=== PATIENT | male | born 1955 | race African-American/Black ===

== ENCOUNTER 2017-05-02 07:11 | Emergency (ER) | payer OTHER ==
[2017-05-02 07:44] VITALS: TEMP 98.3; BMI 27.8
--- NOTE | 2017-05-02 08:43 | PDOC ---
History of Present Illness - General Chief Complaint: Pain Stated Complaint: RIGHT LEG NUMBNESS/PAIN Time Seen by Provider: 05/02/17 07:57 History Source: Patient Exam Limitations: No Limitations - History of Present Illness Initial Comments: 05/02/17 08:08 61-year-old male presents to the ED with complaints of intermittent right groin pain that radiates down to his right thigh intermittently associated with tingling without numbness. Patient states pain is worsened with ambulation or with certain positions with sitting. Patient denies lower extremity edema, previous injury to affected area, history of hernias. Fever, chills or weakness. Patient denies lower back pain, radiation of pain to his abdominal or inguinal area. Patient also denies any rash or skin discoloration. Timing/Duration: intermittent (x 4-5 days) Severity: mild Associated Symptoms: reports: denies symptoms Past History - Past Medical History Allergies/Adverse Reactions: Allergies Allergy/AdvReac Type Severity Reaction Status Date / Time No Known Allergies Allergy Verified 05/02/17 08:32 Home Medications: Ambulatory Orders NK [No Known Home Medication] 05/02/17 Other medical history: denies - Psycho/Social/Smoking Cessation Hx Anxiety: No Suicidal Ideation: No Smoking History: Former smoker Have you smoked in the past 12 months: No Information on smoking cessation initiated: No Hx Alcohol Use: No Drug/Substance Use Hx: No Substance Use Type: None Patient Lives Alone: No Lives with/in: spouse/SO Review of Systems - Review of Systems Able to Perform ROS?: Yes Constitutional: No: Symptoms Reported Musculoskeletal: Yes: Joint Pain (right groin/ hip), Muscle Pain. No: Joint Swelling, Muscle Weakness, Joint Stiffness Integumentary: No: Symptoms Reported Neurological: No: Symptoms reported Hematologic/Lymphatic: No: Symptoms Reported *Physical Exam - Vital Signs Last Vital Signs Temp Pulse Resp BP Pulse Ox 98.3 F 75 20 145/73 98 05/02/17 07:41 05/02/17 07:41 05/02/17 07:41 05/02/17 07:41 05/02/17 07:41 - Physical Exam General Appearance: Yes: Nourished, Appropriately Dressed. No: Apparent Distress Vascular Pulses: Dorsalis-Pedis (R): 2+ Gastrointestinal/Abdominal: positive: Soft. negative: Tenderness Male Genitalia: positive: normal genitalia. negative: inguinal hernia Musculoskeletal: negative: CVA Tenderness, Vertebral Tenderness Extremity: positive: Normal Capillary Refill, Normal Inspection, Normal Range of Motion. negative: Tender, Pedal Edema, Calf Tenderness (right straight leg / knee to chest.) Integumentary: positive: Normal Color, Warm, Moist Neurologic: positive: Motor Strength 5/5 ED Treatment Course - RADIOLOGY Radiology Studies Ordered: Category Date Time Status DUPLEX VASCUL US-1 LEG [US] Stat Ultrasound 05/02/17 07:59 Ordered Medical Decision Making - Medical Decision Making 05/02/17 08:02 Patient with intermittent right hip and right groin pain worsened with ambulation and certain positions. Patient denies any injury recently or previous injury to the affected area. Patient had no reproducible pain and had normal neuro findings of the extremity. 5 out of 5 muscle strength. Patient will be ordered for a duplex to rule out DVT. If negative will refer to PMD to consider further imaging such as an MRI if pain continues 05/02/17 10:06 Duplex negative for DVT. Patient will be given a dose of Toradol IM and discharged home to follow-up with his PCP for further management. *DC/Admit/Observation/Transfer Diagnosis at time of Disposition: Pain of right hip - Discharge Dispostion Disposition: HOME Condition at time of disposition: Good - Referrals Referrals: Josse Rivera MD [Primary Care Provider] - - Patient Instructions Printed Discharge Instructions: DI for Leg Pain Additional Instructions: May take Tylenol since Motrin did not alleviate discomfort. If the pain continues over the next 5 days to this severity it is today or worse , please follow-up with your PCP. Otherwise. Return to the ED if pain becomes severe.
[2017-05-02] MEDS ORDERED: KETOROLAC TROMETHAMINE 60 MG/2 ML VIAL IM ONE (10:06)
[2017-05-02] MEDS ORDERED: KETOROLAC TROMETHAMINE 60 MG/2 ML VIAL ONE (10:19)
[2017-05-02 10:36] VITALS: BP 130/70; PULSE 72
== END 2017-05-02 10:36 | disposition home or self-care (01) ==
LOC: JER 07:11
PROC: 3E0233Z Introduction of Anti-inflammatory into Muscle, Percutaneous Approach (ICD-10-PCS; principal; 2017-05-02)
DX: M25.551 Pain in right hip (principal); Z87.891 Personal history of nicotine dependence
CPT/HCPCS: 93971-TC; 99282-25

== ENCOUNTER 2017-05-11 11:42 | Emergency (ER) | payer OTHER ==
[2017-05-11 11:50] VITALS: BP 160/100; PULSE 75; TEMP 98.3; BMI 26.4
[2017-05-11] MEDS ORDERED: KETOROLAC TROMETHAMINE 60 MG/2 ML VIAL IM ONE (12:37)
[2017-05-11] MEDS ORDERED: KETOROLAC TROMETHAMINE 60 MG/2 ML VIAL ONE (12:40)
--- NOTE | 2017-05-11 12:44 | PDOC ---
History of Present Illness - General Chief Complaint: Pain Stated Complaint: PAIN Time Seen by Provider: 05/11/17 12:06 History Source: Patient Exam Limitations: No Limitations - History of Present Illness Initial Comments: 05/11/17 12:38 Patient is a 61-year-old male, denies any significant medical history, was seen in the emergency department on 05/02/2017 or right lateral leg pain radiating down leg. Ultrasound was performed negative for DVT. Patient was referred to neurology who started him on medication for restless leg. Patient reports that medication is not working and he is awaiting approval from the insurance company for an MRI and feels that it is taking too long. Patient states pain is reproducible worse with certain positions and sitting. Patient denies lower extremity edema, previous injury to affected area, history of hernias. Fever, chills or weakness. Patient denies lower back pain, radiation of pain to his abdominal or inguinal area. Patient also denies any rash or skin discoloration. Patient denies any numbness or tingling, no saddle anesthesia, no footdrop. Patient states that he is in the emergency department for pain control. Review of Systems GENERAL/CONSTITUTIONAL: No fever or chills. No weakness. No weight change. HEAD, EYES, EARS, NOSE AND THROAT: No change in vision. No ear pain or discharge. No sore throat. CARDIOVASCULAR: No chest pain or shortness of breath. RESPIRATORY: No cough, wheezing, or hemoptysis. GASTROINTESTINAL: No nausea, vomiting, diarrhea or constipation. No rectal bleeding. GENITOURINARY: No dysuria, frequency, or change in urination. MUSCULOSKELETAL: Right lateral hip pain radiating down right leg . No neck or back pain. SKIN: No rash or easy bruising. NEUROLOGIC: No headache, vertigo, loss of consciousness, or loss of sensation. Physical Exam: GENERAL: The patient is awake, alert, and fully oriented, in no acute distress. EYES: Pupils equal, round and reactive to light, extraocular movements intact, sclera anicteric, conjunctiva clear. ENT: Ears normal, nares patent, oropharynx clear without exudates. Moist mucous membranes. No uvula deviation NECK: Normal range of motion, supple without lymphadenopathy, JVD, or masses. LUNGS: Breath sounds equal, clear to auscultation bilaterally. No wheezes, and no crackles. HEART: Regular rate and rhythm, normal S1 and S2 without murmur, rub or gallop. ABDOMEN: Soft, nontender, normoactive bowel sounds. No guarding, no rebound. No masses. No bruising or abrasions RECTAL : Guaiac negative, normal rectal tone. MUSCULOSKELETAL: Normal range of motion, no edema. No clubbing or cyanosis. No cords, erythema, or tenderness. No CVA Tenderness with fist palpation. Pain with range of motion to right hip flexor NEUROLOGICAL: Cranial nerves II through XII grossly intact. Normal speech, normal gait. SKIN: Warm, Dry, normal turgor, no rashes or lesions noted. Past History - Past Medical History Allergies/Adverse Reactions: Allergies Allergy/AdvReac Type Severity Reaction Status Date / Time No Known Allergies Allergy Verified 05/11/17 11:44 Home Medications: Ambulatory Orders Diclofenac Sodium 50 mg PO TID PRN #21 tablet. 05/11/17 Other medical history: none - Surgical History Neurologic Surgery: Yes (skull skull, fx hands) - Psycho/Social/Smoking Cessation Hx Anxiety: No Suicidal Ideation: No Smoking History: Never smoked Have you smoked in the past 12 months: No Information on smoking cessation initiated: No Hx Alcohol Use: No Drug/Substance Use Hx: No Substance Use Type: None *Physical Exam - Vital Signs Last Vital Signs Temp Pulse Resp BP Pulse Ox 98.3 F 75 18 160/100 100 05/11/17 11:46 05/11/17 11:46 05/11/17 11:46 05/11/17 11:46 05/11/17 11:46 Medical Decision Making - Medical Decision Making 05/11/17 12:44 A/P: Patient with right lateral hip pain pain with range of motion to right hip worse with abduction. Patient is requesting Toradol injection states it helped on last visit. Has been taking Motrin without resolve. Also taking medication for "restless leg" 05/11/17 14:20 After Toradol injection, patient states relief of pain we'll DC patient home on diclofenac, follow-up with neurology. I discussed the physical exam findings, ancillary test results and final diagnoses with the patient. I answered all of the patient's questions. The patient was satisfied with the care received and felt comfortable with the discharge plan and treatment plan. The patient will call to arrange follow-up and will return to the Emergency Department with any new, persistent or worsening symptoms. *DC/Admit/Observation/Transfer Diagnosis at time of Disposition: Right hip pain - Discharge Dispostion Disposition: HOME Condition at time of disposition: Stable Admit: No - Prescriptions Prescriptions: Diclofenac Sodium 50 mg PO TID PRN #21 tablet.dr GEORGES Reason: Pain - Referrals Referrals: Josse Rivera MD [Primary Care Provider] - - Patient Instructions Additional Instructions: Please follow up with Neuro for evaluation and MRI
== END 2017-05-11 13:44 | disposition home or self-care (01) ==
LOC: JERFT 11:42
PROC: 3E0233Z Introduction of Anti-inflammatory into Muscle, Percutaneous Approach (ICD-10-PCS; principal; 2017-05-11)
DX: M25.551 Pain in right hip (principal); M79.604 Pain in right leg; G25.81 Restless legs syndrome
CPT/HCPCS: 99281-25

== ENCOUNTER 2019-04-25 16:25 | Emergency (ER) | payer OTHER | END 2019-04-25 17:29 | disposition home or self-care (01) | LOC: JERFT 16:25 ==